=== PATIENT | male | born 1945 | race Caucasian/White ===

== ENCOUNTER 2019-03-19 09:20 | Day surgery (SDC) | payer MEDICARE ==
[~2019-03-19 09:20] MED LIST: BESIFLOXACIN HCL 0.6% OPH SUSP 5 ML BOTTLE OD PRN; BUPIVACAINE HCL 0.75% INJ/PF (7.5 MG/1 ML) 10 ML SDV OD PRN; CYCLOPENTOLATE 0.2%/PHENYLEPHRINE 1% OPH SOLN 2 ML OD PRN; DORZOLAMIDE HCL 2%/TIMOLOL MALEAT 0.5% OPH SOLN 10 ML OD PRN; KETOROLAC TROMETHAMINE 0.45% 4 DROP/0.4 ML DROPERETTE OD PRN; LIDOCAINE 4% INJ/PF (40 MG/ML) 5 ML AMPUL OD PRN; TETRACAINE HCL 0.5% OPH SOLN 0.6 ML DROPERETTE OD PRN; TROPICAMIDE 1% OPH SOLN 3 ML OD PRN
[2019-03-19] MEDS ORDERED: LIDOCAINE 1%/PHENYLEPHRINE 1.5% 1 ML VIAL ONE (11:20)
[2019-03-19] MEDS ORDERED: EPINEPHRINE INJ/PF 1 MG/1 ML AMPULE ONE (11:20)
[2019-03-19] MEDS ORDERED: CHONDR SU A NA/HYALUR INTRAOC KIT (SURGICARE) ONE (11:20)
== END 2019-03-19 11:50 | disposition home or self-care (01) ==
LOC: SC 09:20
PROVIDERS: ATTEND Ophthalmology
DX: R69 Illness, unspecified (principal)
CPT/HCPCS: J0171; J2370; J3490

== ENCOUNTER → 2019-03-30 | Outpatient (CLI) | payer MEDICARE ==
[2019-03-30 09:35] LABS: HEMATOCRIT 43.7 % (37.9-51.0); MEAN CORPUSCULAR HEMOGLOBIN 35.2 pg (27.0-33.4); MEAN CORPUSCULAR HGB CONC 34.3 g/dL (32.0-36.0); MEAN CORPUSCULAR VOLUME 103 fl (80-97); PLATELET COUNT 164 10^3/uL (150-450); RED BLOOD COUNT 4.25 10^6/uL (4.35-5.55); RED CELL DISTRIBUTION WIDTH 13.6 % (11.5-14.0)
[2019-03-30 09:49] LABS: CHOLESTEROL 161.24 mg/dL (0-200); TRIGLYCERIDES 47 mg/dL (<150)
[2019-03-30 09:54] LABS: ALANINE AMINOTRANSFERASE 23 U/L (21-72); ALBUMIN 4.3 g/dL (3.5-5.0); ALKALINE PHOSPHATASE 60 U/L (38-126); ANION GAP 7 (5-19); ASPARTATE AMINO TRANSFERASE 27 U/L (17-59); BILIRUBIN,DIRECT 0.3 mg/dL (0.0-0.4); BILIRUBIN,TOTAL 0.9 mg/dL (0.2-1.3); BLOOD UREA NITROGEN 17 mg/dL (7-20); CALCIUM 9.4 mg/dL (8.4-10.2); CARBON DIOXIDE 30 mmol/L (22-30); CHLORIDE 100 mmol/L (98-107); GLUCOSE 103 mg/dL (75-110); POTASSIUM 4.9 mmol/L (3.6-5.0); SODIUM 136.5 mmol/L (137-145); TOTAL PROTEIN 7.6 g/dL (6.3-8.2)
[2019-03-30 09:58] LABS: APPEARANCE,URINE CLEAR; BILIRUBIN,URINE NEGATIVE (NEGATIVE); COLOR,URINE YELLOW; GLUCOSE, URINE NEGATIVE (NEGATIVE); KETONES,URINE NEGATIVE (NEGATIVE); LEUKOCYTE ESTERASE,URINE NEGATIVE (NEGATIVE); NITRITE,URINE NEGATIVE (NEGATIVE); PROTEIN,URINE NEGATIVE (NEGATIVE); UROBILINOGEN,URINE NEGATIVE mg/dL (<2.0)
[2019-03-30 10:01] LABS: DIRECT LDL 65 mg/dL (<100)
== END ==
LOC: OD 08:05
PROVIDERS: ATTEND Internal Medicine Cardiovascular Disease
DX: I48.91 Unspecified atrial fibrillation (principal); Z79.01 Long term (current) use of anticoagulants; Z79.899 Other long term (current) drug therapy
CPT/HCPCS: 36415; 80048; 80061; 80076; 81001; 82272; 83735; 84443; 85027; 85730

== ENCOUNTER 2019-04-05 21:03 | Emergency (ER) | payer MEDICARE ==
[2019-04-05 23:59] LABS: ABSOLUTE BASOPHILS # (AUTO) 0.1 10^3/uL (0.0-0.2); ABSOLUTE EOSINOPHILS # (AUTO) 0.3 10^3/uL (0.0-0.6); ABSOLUTE LYMPHOCYTES (AUTO) 2.9 10^3/uL (0.5-4.7); ABSOLUTE MONOCYTES (AUTO) 0.7 10^3/uL (0.1-1.4); BASOPHILS % (AUTO) 0.9 % (0-2); EOSINOPHILS % (AUTO) 4.9 % (0-6); HEMATOCRIT 44.6 % (37.9-51.0); HEMOGLOBIN 15.3 g/dL (13.5-17.0); LYMPHOCYTES % (AUTO) 41.2 % (13-45); MEAN CORPUSCULAR HEMOGLOBIN 35.6 pg (27.0-33.4); MEAN CORPUSCULAR HGB CONC 34.3 g/dL (32.0-36.0); MEAN CORPUSCULAR VOLUME 104 fl (80-97); MONOCYTES % (AUTO) 10.1 % (3-13); PLATELET COUNT 189 10^3/uL (150-450); RED CELL DISTRIBUTION WIDTH 13.9 % (11.5-14.0); SEGMENTED NEUTROPHILS % (AUTO) 42.9 % (42-78); TOTAL CELLS COUNTED % (AUTO) 100 %
--- NOTE | 2019-04-06 00:04 | ER Document Report ---
ED Medical Screen (RME) - General Chief Complaint: Chest Pain Stated Complaint: CHEST PAIN/AFIB Time Seen by Provider: 04/05/19 23:53 Primary Care Provider: ROWENA OLMSTEAD MD [Primary Care Provider] - Follow up as needed Notes: 73-year-old male chief complaint of chest pain that started this afternoon. He states that he was recently diagnosed with atrial fibrillation and placed on a blood thinner as well. He denies other symptoms including nausea, vomiting, fever, shortness of breath, dizziness. TRAVEL OUTSIDE OF THE [place] IN LAST 30 DAYS: No - Related Data Allergies/Adverse Reactions: No Known Allergies Allergy (Unverified 03/13/19 15:18) Past Medical History - Social History Chew tobacco use (# tins/day): No Frequency of alcohol use: Occasional Drug Abuse: None - Past Medical History Cardiac Medical History: Denies: Hx Heart Attack, Hx Hypertension Pulmonary Medical History: Denies: Hx Asthma Neurological Medical History: Denies: Hx Cerebrovascular Accident, Hx Seizures Renal/ Medical History: Denies: Hx Peritoneal Dialysis GI Medical History: Denies: Hx Hepatitis, Hx Hiatal Hernia, Hx Ulcer Infectious Medical History: Denies: Hx Hepatitis Past Surgical History: Denies: Hx Open Heart Surgery, Hx Pacemaker Physical Exam - Vital signs Vitals: Temp Pulse Resp BP Pulse Ox 97.5 F 107 H 20 102/69 94 04/05/19 21:19 04/05/19 21:19 04/05/19 21:19 04/05/19 21:19 04/05/19 21:19 - Cardiovascular Rhythm: Irregularly irregular, Tachycardia Heart sounds: Normal auscultation, S1 appreciated, S2 appreciated Course - Re-evaluation Re-evalutation: EKG showing atrial fibrillation with tachycardia but no RVR. However on evaluation his heart rate sounds significantly faster. Patient will be taken back to the room and placed on the monitor now. Work-up pending. I have greeted and performed a rapid initial assessment of this patient. A comprehensive ED assessment and evaluation of the patient, analysis of test results and completion of the medical decision making process will be conducted by additional ED providers. - Vital Signs Vital signs: Temp Pulse Resp BP Pulse Ox 97.5 F 107 H 20 102/69 94 04/05/19 21:19 04/05/19 21:19 04/05/19 21:19 04/05/19 21:19 04/05/19 21:19 Doctor's Discharge - Discharge Referrals: ROWENA OLMSTEAD MD [Primary Care Provider] - Follow up as needed
[2019-04-06 00:19] LABS: ALANINE AMINOTRANSFERASE 24 U/L (21-72); ALBUMIN 4.4 g/dL (3.5-5.0); ALKALINE PHOSPHATASE 59 U/L (38-126); ANION GAP 11 (5-19); ASPARTATE AMINO TRANSFERASE 28 U/L (17-59); BILIRUBIN,DIRECT 0.2 mg/dL (0.0-0.4); BILIRUBIN,TOTAL 0.4 mg/dL (0.2-1.3); BLOOD UREA NITROGEN 12 mg/dL (7-20); CALCIUM 9.5 mg/dL (8.4-10.2); CARBON DIOXIDE 28 mmol/L (22-30); CHLORIDE 99 mmol/L (98-107); CREATINE KINASE 47 U/L (55-170); GLUCOSE 77 mg/dL (75-110); POTASSIUM 4.6 mmol/L (3.6-5.0); SODIUM 137.8 mmol/L (137-145); TOTAL PROTEIN 7.5 g/dL (6.3-8.2)
[2019-04-06 00:33] LABS: INTERNATIONAL RATION (INR) 0.95; PARTIAL THROMBOPLASTIN TIME 29.2 SEC (23.5-35.8); PROTHROMBIN TIME 12.7 SEC (11.4-15.4)
[2019-04-06 00:37] LABS: CREATINE KINASE MB 0.56 ng/mL (<4.55)
[2019-04-06 00:38] LABS: TROPONIN I < 0.012 ng/mL
[2019-04-06 01:19] VITALS: BP 113/79
--- NOTE | 2019-04-06 05:56 | ER Document Report ---
Entered by EDD FERNÁNDEZ SCRIBE 04/06/19 0103 Acting as scribe for:PHIL DENIS DO ED General - General Chief Complaint: Chest Pain Stated Complaint: CHEST PAIN/AFIB Time Seen by Provider: 04/05/19 23:53 Primary Care Provider: ROWENA OLMSTEAD MD [Primary Care Provider] - Follow up as needed Mode of Arrival: Ambulatory Information source: Patient Notes: Patient is a 73 year old male with afib presents to the emergency department due to being in afib. Patient states he was diagnosed with A.fib on 02/16/19 and was at his security officer office today for a follow up. Patient states he was going to be started on a dose of Eliquis today but was sent to the emergency department for further evaluation. Patient states he had a very brief episode of chest pain described as "twisting the wrong way" that lasted for "a split second". Patient states he currently feels "good". He denies any trouble breathing, nausea, vomiting, diaphoresis, radiating pain, heart palpitations or a history of MS, stents or CVA. Patient reports he recently received a pneumonia shot. TRAVEL OUTSIDE OF THE [place] IN LAST 30 DAYS: No - Related Data Allergies/Adverse Reactions: No Known Allergies Allergy (Unverified 03/13/19 15:18) Past Medical History - General Information source: Patient - Social History Smoking Status: Current Every Day Smoker Chew tobacco use (# tins/day): No Frequency of alcohol use: Occasional Drug Abuse: None Family History: Reviewed & Not Pertinent Patient has suicidal ideation: No Patient has homicidal ideation: No - Past Medical History Cardiac Medical History: Reports: Hx Atrial Fibrillation Review of Systems - Review of Systems Constitutional: No symptoms reported EENT: No symptoms reported Cardiovascular: See HPI Respiratory: No symptoms reported Gastrointestinal: No symptoms reported Genitourinary: No symptoms reported Male Genitourinary: No symptoms reported Musculoskeletal: No symptoms reported Skin: No symptoms reported Hematologic/Lymphatic: No symptoms reported Neurological/Psychological: No symptoms reported -: Yes All other systems reviewed and negative Physical Exam - Vital signs Vitals: Temp Pulse Resp BP Pulse Ox 97.5 F 107 H 20 102/69 94 04/05/19 21:19 04/05/19 21:19 04/05/19 21:19 04/05/19 21:19 04/05/19 21:19 - Notes Notes: GENERAL: Alert, interacts well. No acute distress. HEAD: Normocephalic, atraumatic. EYES: Pupils equal, round, and reactive to light. Extraocular movements intact. ENT: Oral mucosa moist, tongue midline. NECK: Full range of motion. Supple. Trachea midline. LUNGS: Clear to auscultation bilaterally, no wheezes, rales, or rhonchi. No respiratory distress. HEART: Irregularly irregular. Boderline tachycardia. No murmurs, gallops, or rubs. ABDOMEN: Soft, non-tender. Non-distended. Bowel sounds present in all 4 quadrants. No guarding, rigidity, or rebound. EXTREMITIES: Moves all 4 extremities spontaneously. No edema, radial and dorsalis pedis pulses 2/4 bilaterally. No cyanosis. NEUROLOGICAL: Alert and oriented x3. Normal speech. PSYCH: Normal affect, normal mood. SKIN: Warm, dry, normal turgor. No rashes or lesions noted. Course - Re-evaluation Re-evalutation: 04/06/19 01:10 CBC grossly unremarkable, coags normal, CMP unremarkable, cardiac enzymes negative, chest pain started and ended at approximately 14:30. It has been greater than 8 hours since his pain started, it is not very suspicious for ischemic cardiac disease, heart score is 2. Patient is very minimally tachycardic, already anticoagulated for A. fib. Patient will be started on low- dose of metoprolol for rate control and discharged home. Advised to continue to follow-up with Dr. Mcrae and with his security officer. 04/06/19 01:12 - Vital Signs Vital signs: Temp Pulse Resp BP Pulse Ox 98.5 F 107 H 20 113/79 96 04/06/19 01:29 04/05/19 21:19 04/06/19 01:01 04/06/19 01:01 04/06/19 01:01 - Laboratory Result Diagrams: 04/05/19 23:45 04/05/19 23:45 Laboratory results interpreted by me: 04/05/19 04/05/19 23:45 23:45 RBC 4.30 L MCV 104 H MCH 35.6 H Creatine Kinase 47 L - EKG Interpretation by Me Additional EKG results interpreted by me: 04/06/19 01:12 EKG shows atrial fibrillation at a rate of 108, ventricular rate ranges between 79 and 139, no ST segment elevations or depressions, no T wave inversions, normal axis, normal intervals per my interpretation. Discharge - Discharge Clinical Impression: Chest pain with low risk for cardiac etiology Atrial fibrillation Qualifiers: Atrial fibrillation type: chronic Qualified Code(s): I48.2 - Chronic atrial fibrillation Condition: Stable Disposition: HOME, SELF-CARE Additional Instructions: Today we did not see any sign of heart attack. Your blood work was normal. There is no sign of thyroid dysfunction. I started you on a very low dose of metoprolol, this will help to control your heart rate. It can lower your blood pressures so if you feel weak or dizzy please stop taking the medication and return to the emergency department for recheck. Please follow-up with your primary care physician as well as with your security officer. They may wish to further adjust your rate controlling medication. Please continue taking your Eliquis as prescribed. Prescriptions: Metoprolol Tartrate [Lopressor 25 mg Tablet] 12.5 mg PO Q12 #30 tab Referrals: ROWENA OLMSTEAD MD [Primary Care Provider] - Follow up as needed I personally performed the services described in the documentation, reviewed and edited the documentation which was dictated to the scribe in my presence, and it accurately records my words and actions.
--- NOTE | 2019-04-07 00:17 | EKG REPORT ---
SEVERITY:- ABNORMAL ECG - ATRIAL FIBRILLATION, V-RATE 79-139 : Confirmed by: Guera Escobedo 07-Apr-2019 00:16:33
== END 2019-04-06 01:31 | disposition home or self-care (01) ==
LOC: ER 21:03
DX: R07.9 Chest pain, unspecified (principal); I48.2 Chronic atrial fibrillation; F17.200 Nicotine dependence, unspecified, uncomplicated
CPT/HCPCS: 36415; 80053; 82550; 82553; 84443; 84484; 85025; 85610; 85730; 93005; 93010; 99285

== ENCOUNTER 2019-07-09 09:27 | Day surgery (SDC) | payer MEDICARE ==
[~2019-07-09 09:27] MED LIST changes: -BESIFLOXACIN HCL 0.6% OPH SUSP 5 ML BOTTLE OD PRN; +CHONDR SU A NA/HYALUR INTRAOC KIT (SURGICARE) ONE; -CYCLOPENTOLATE 0.2%/PHENYLEPHRINE 1% OPH SOLN 2 ML OD PRN; +EPINEPHRINE INJ/PF 1 MG/1 ML AMPULE ONE; +LIDOCAINE 1% INJ-PF (10 MG/ML) 30 ML SDV ONE; -TETRACAINE HCL 0.5% OPH SOLN 0.6 ML DROPERETTE OD PRN; -TROPICAMIDE 1% OPH SOLN 3 ML OD PRN
[2019-07-09] MEDS: CYCLOPENTOLATE 0.2%/PHENYLEPHRINE 1% OPH SOLN 2 ML OD PRN ×3 (10:45→11:08)
[2019-07-09] MEDS: TETRACAINE HCL 0.5% OPH SOLN 4 ML OD PRN ×3 (10:45→11:28)
[2019-07-09] MEDS: TROPICAMIDE 1% OPH SOLN 15 ML OD PRN ×3 (10:45→11:08)
[2019-07-09] MEDS: BESIFLOXACIN HCL 0.6% OPH SUSP 5 ML BOTTLE OD PRN ×3 (10:45→11:54)
[2019-07-09] MEDS ORDERED: FENTANYL CITRATE INJ/PF 100 MCG/2 ML AMPUL ONE (11:05)
[2019-07-09] MEDS ORDERED: MIDAZOLAM 2 MG/2 ML INJ ONE (11:05)
--- NOTE | 2019-07-09 12:51 | Operative Report ---
Operative Report-[facility] Operative Report: DATE OF SURGERY: 07/09/2019 PREOPERATIVE DIAGNOSIS: CATARACT, RIGHT EYE. POSTOPERATIVE DIAGNOSIS: CATARACT, RIGHT EYE. PROCEDURE PERFORMED: PHACOEMULSIFICATION WITH POSTERIOR CHAMBER INTRAOCULAR LENS, RIGHT EYE. Intraocular Lens Model : SN 6 0 WF 18.5 Total Phaco Time: 21.17 CDE SURGEON: SUMI TENORIO MD ANESTHESIA: TOPICAL WITH MAC. INDICATIONS FOR SURGERY: Difficulty seeing TV and driving. PROCEDURE: The patient was brought to the Operating Room and placed on the operative table. Following tetracaine drops, topical anesthesia was administered. This consisted of instrument wipe pledgets soaked in a solution of 4% Xylocaine mixed with 0.75% Marcaine in a 1:2 ratio. A 2 x 1 cm pledget was placed in the superior fornix. A 1 x 1 cm pledget was placed in the inferior fornix. The eye was patched shut for 5 minutes. The patch was removed. The eye was sterilely prepped and draped in the usual manner. Lid speculum was placed in the eye. The pledgets were removed. 4-0 black silk sutures were placed around the superior and the inferior rectus muscles to be used as traction. A conjunctival peritomy was made at the 10 o'clock position. Hemostasis was obtained with bipolar cautery. A posterior limbal groove was created using a crescent knife and dissected anteriorly towards the cornea. A sharp point blade was used to create a paracentesis site at the 2 o'clock position. 0.2 cc non preserved Lidocaine was injected into the anterior chamber. A 2.4 mm keratome was used to enter the anterior chamber through the groove. Viscoelastic was injected into the anterior chamber. An anterior capsulotomy was performed using Utrata forceps in a capsulorrhexis fashion. Hydrodissection and hydrodelineation were performed. Phacoemulsification was performed in [id number] technique. Following this, the I/A unit was used to remove residual cortex. Viscoelastic was injected into the capsular bag. The Intraocular lens was placed in the capsular bag. The I/A unit was used to remove residual viscoelastic. The wound was seen to be watertight under high and low pressure, and no sutures were cristi carmencita. The intraocular lens was well centered. The pressure was adjusted in the eye to normal pressure. The 4-0 black silk sutures and lid speculum were removed. The eye was shielded after Besivance and Cosopt drops were placed. The patient tolerated the procedure well and was sent to the Recovery Room in good condition.
[2019-07-09] MEDS ORDERED: LIDOCAINE 1%/PHENYLEPHRINE 1.5% 1 ML VIAL ONE (12:57)
== END 2019-07-09 12:41 | disposition home or self-care (01) ==
LOC: SC 09:27
PROVIDERS: ATTEND Ophthalmology
DX: H25.813 Combined forms of age-related cataract, bilateral (principal); H57.03 Miosis; J44.9 Chronic obstructive pulmonary disease, unspecified; I10 Essential (primary) hypertension; I48.91 Unspecified atrial fibrillation; F17.210 Nicotine dependence, cigarettes, uncomplicated; Z79.82 Long term (current) use of aspirin; Z79.899 Other long term (current) drug therapy; Z79.01 Long term (current) use of anticoagulants
CPT/HCPCS: 00142; 66984; V2632; J2250; J3490 ×5; A9270; J0171; J3010; J2370; 142

== ENCOUNTER 2019-08-01 07:10 | Day surgery (SDC) | payer MEDICARE ==
[~2019-08-01 07:10] MED LIST changes: -BUPIVACAINE HCL 0.75% INJ/PF (7.5 MG/1 ML) 10 ML SDV OD PRN; +BUPIVACAINE HCL 0.75% INJ/PF (7.5 MG/1 ML) 10 ML SDV OS PRN; -DORZOLAMIDE HCL 2%/TIMOLOL MALEAT 0.5% OPH SOLN 10 ML OD PRN; +DORZOLAMIDE HCL 2%/TIMOLOL MALEAT 0.5% OPH SOLN 10 ML OS PRN; +FENTANYL CITRATE INJ/PF 100 MCG/2 ML AMPUL ONE; -KETOROLAC TROMETHAMINE 0.45% 4 DROP/0.4 ML DROPERETTE OD PRN; +KETOROLAC TROMETHAMINE 0.45% 4 DROP/0.4 ML DROPERETTE OS PRN; -LIDOCAINE 4% INJ/PF (40 MG/ML) 5 ML AMPUL OD PRN; +LIDOCAINE 4% INJ/PF (40 MG/ML) 5 ML AMPUL OS PRN; +MIDAZOLAM 2 MG/2 ML INJ ONE; +ONDANSETRON HCL INJ/PF 4 MG/2 ML SDV ONE
[2019-08-01] MEDS: CYCLOPENTOLATE 0.2%/PHENYLEPHRINE 1% OPH SOLN 2 ML OS PRN ×3 (08:10→08:30)
[2019-08-01] MEDS: BESIFLOXACIN HCL 0.6% OPH SUSP 5 ML BOTTLE OS PRN ×3 (08:10→09:14)
[2019-08-01] MEDS: TROPICAMIDE 1% OPH SOLN 15 ML OS PRN ×3 (08:10→08:30)
[2019-08-01] MEDS: TETRACAINE HCL 0.5% OPH SOLN 4 ML OS PRN ×3 (08:10→08:42)
[2019-08-01] MEDS ORDERED: LIDOCAINE 1%/PHENYLEPHRINE 1.5% 1 ML VIAL ONE (09:17)
--- NOTE | 2019-08-01 18:52 | Operative Report ---
Operative Report-[facility] Operative Report: DATE OF SURGERY: 08/01/2019 PREOPERATIVE DIAGNOSIS: CATARACT, LEFT EYE. POSTOPERATIVE DIAGNOSIS: CATARACT, LEFT EYE. PROCEDURE PERFORMED: PHACOEMULSIFICATION WITH POSTERIOR CHAMBER INTRAOCULAR LENS, LEFT EYE. Intraocular Lens Model : SN 6 0 WF 20.0 Total Phaco Time: 0.66 CDE SURGEON: SUMI TENORIO MD ANESTHESIA: TOPICAL WITH MAC. INDICATIONS FOR SURGERY: Difficultly driving at night PROCEDURE: The patient was brought to the Operating Room and placed on the operative table. Following tetracaine drops, topical anesthesia was administered. This consisted of instrument wipe pledgets soaked in a solution of 4% Xylocaine mixed with 0.75% Marcaine in a 1:2 ratio. A 2 x 1 cm pledget was placed in the superior fornix. A 1 x 1 cm pledget was placed in the inferior fornix. The eye was patched shut for 5 minutes. The patch was removed. The eye was sterilely prepped and draped in the usual manner. Lid speculum was placed in the eye. The pledgets were removed. 4-0 black silk sutures were placed around the superior and the inferior rectus muscles to be used as traction. A conjunctival peritomy was made at the 1 o'clock position. Hemostasis was obtained with bipolar cautery. A posterior limbal groove was created using a crescent knife and dissected anteriorly towards the cornea. A sharp point blade was used to create a paracentesis site at the 5 o'clock position. 0.2 cc non preserved Lidocaine was injected into the anterior chamber. A 2.4 mm keratome was used to enter the anterior chamber through the groove. Viscoelastic was injected into the anterior chamber. An anterior capsulotomy was performed using Utrata forceps in a capsulorrhexis fashion. Hydrodissection and hydrodelineation were performed. Phacoemulsification was performed in [id number] technique. Following this, the I/A unit was used to remove residual cortex. Viscoelastic was injected into the capsular bag. The Intraocular lens was placed in the capsular bag. The I/A unit was used to remove residual viscoelastic. The wound was seen to be watertight under high and low pressure, and no sutures were placed. The intraocular lens was well centered. The pressure was adjusted in the eye to normal pressure. The 4-0 black silk sutures and lid speculum were removed. The eye was shielded after Besivance and Cosopt drops were placed. The patient tolerated the procedure well and was sent to the Recovery Room in good condition.
== END 2019-08-01 09:55 | disposition home or self-care (01) ==
LOC: SC 07:10
PROVIDERS: ATTEND Ophthalmology
DX: H25.812 Combined forms of age-related cataract, left eye (principal); Z96.1 Presence of intraocular lens; H57.03 Miosis; I10 Essential (primary) hypertension; Z79.01 Long term (current) use of anticoagulants
CPT/HCPCS: 66984; 00142; J2250; J3490 ×5; A9270; J0171; J3010; J2405; J2370; 142; V2632